=== PATIENT | male | born 1945 | race Hispanic/Latino ===

== ENCOUNTER 2019-09-30 23:20 | Inpatient (IN) | payer MEDICARE ==
[~2019-09-30] VITALS: Ht 157.5 cm; Wt 56.4 kg
[2019-09-30 23:53] LABS: BASOPHILS % (AUTO) 0.3 % (0.0-5.0); EOSINOPHILS % (AUTO) 0.2 % (0.0-8.0); HEMATOCRIT 34.5 % (42-54); LYMPHOCYTES % (AUTO) 12.9 % (21.0-51.0); MEAN CORPUSCULAR HEMOGLOBIN 29.8 pg (27.0-33.0); MEAN CORPUSCULAR HGB CONC 32.5 g/dL (32.0-36.0); MEAN CORPUSCULAR VOLUME 91.8 fL (79-99); MONOCYTES % (AUTO) 6.5 % (3.0-13.0); NEUTROPHILS % (AUTO) 79.9 % (40.0-77.0); PLATELET COUNT (AUTO) 144 K/uL (130-400); RED BLOOD CELL COUNT(AUTO) 3.76 MIL/uL (4.50-6.20); RED CELL DISTRIBUTION WIDTH 13.9 % (11.0-15.5)
[2019-10-01 00:13] LABS: CREATININE 1.2 mg/dL (0.5-1.5); POTASSIUM 3.4 mmol/L (3.5-5.1)
[2019-10-01] MEDS ORDERED: FUROSEMIDE 10 MG/ML 2ML VIAL ONE (00:14)
[2019-10-01] MEDS ORDERED: FUROSEMIDE 10 MG/ML 4ML VIAL ONE ×2 (00:14→14:50)
[2019-10-01] MEDS ORDERED: NITROGLYCERIN 1GM/1 INCH PACKET TD ONE ×3 (00:14→18:39)
[2019-10-01] MEDS ORDERED: MORPHINE SULFATE 2 MG/ML 1ML SYG ONE ×3 (00:15→00:49)
[2019-10-01 00:16] LABS: INR 0.91 (0.85-1.15); PARTIAL THROMBOPLASTIN TIME 20.8 SEC (26.3-35.5); PROTHROMBIN TIME 9.9 SEC (9.6-11.6)
[2019-10-01 00:20] LABS: ALBUMIN 3.6 g/dL (3.5-5.0); BILIRUBIN,TOTAL 0.3 mg/dL (0.2-1.0); TOTAL PROTEIN, SERUM 6.9 g/dL (6.0-8.3)
[2019-10-01] MEDS ORDERED: ONDANSETRON HCL 4 MG/2 ML VIAL ONE (00:28)
[2019-10-01 00:37] LABS: B-TYPE NATRIURETIC PEPTIDE 597 pg/mL (0-100)
[2019-10-01] MEDS ORDERED: ACETAMINOPHEN 325 MG TAB PO PRN ×2 (02:15)
[2019-10-01] MEDS ORDERED: ENOXAPARIN SODIUM 1 MG/KG SQ SCH (02:15)
[2019-10-01] MEDS ORDERED: MAG HYDROX/AL HYDROX/SIMETH ES 30 ML SUSP UDCUP PO PRN (02:15)
[2019-10-01] MEDS ORDERED: GUAIFENESIN-DM 200/20 MG 10 ML PO PRN (02:15)
[2019-10-01] MEDS ORDERED: LACTULOSE 20 GM/30 ML UDCUP PO PRN (02:15)
[2019-10-01] MEDS ORDERED: MORPHINE SULFATE 2 MG/ML 1ML SYG IV PRN (02:15)
[2019-10-01] MEDS ORDERED: HYDRALAZINE HCL 20 MG/ML VIAL IV PRN (02:15)
[2019-10-01] MEDS ORDERED: NITROGLYCERIN 0.4 MG SL TAB SL PRN (02:15)
[2019-10-01] MEDS ORDERED: MORPHINE SULFATE 4 MG/1ML SYG IV PRN (02:15)
[2019-10-01] MEDS ORDERED: ZOLPIDEM TARTRATE 5 MG TAB PO PRN (02:15)
[2019-10-01] MEDS ORDERED: MAG HYDROX/AL HYDROX/SIMETH 30 ML, LIDOCAINE HCL 2% VISCOUS 30 ML, DIPHENHYDRAMINE HCL ... PO PRN ×3 (02:15)
[2019-10-01] MEDS ORDERED: DiphenhydrAMINE HCL 50 MG/ML VIAL IV PRN (02:15)
[2019-10-01] MEDS ORDERED: NITROGLYCERIN 1GM/1 INCH PACKET TD SCH (02:15)
[2019-10-01] MEDS ORDERED: DIPHENHYDRAMINE HCL 25 MG CAPSULE PO PRN (02:15)
[2019-10-01] MEDS: TICAGRELOR 90 MG TABLET PO SCH (02:30)
[2019-10-01] MEDS ORDERED: ENOXAPARIN SODIUM 100 MG/1 ML SQ ONE (02:35)
[2019-10-01] MEDS ORDERED: TICAGRELOR 90 MG TABLET ONE (02:36)
[2019-10-01] MEDS ORDERED: ATORVASTATIN CALCIUM 40 MG TABLET ONE (02:36)
[2019-10-01 04:10] LABS: TROPONIN I 10.93 ng/mL (0.00-0.06)
[2019-10-01] MEDS ORDERED: POTASSIUM CHLORIDE 10MEQ/100ML 100 ML IV PRN (05:15)
[2019-10-01] MEDS ORDERED: LIDOCAINE HCL-MPF 1% 2ML VIAL IV PRN (05:15)
[2019-10-01] MEDS ORDERED: FUROSEMIDE 10 MG/ML 4ML VIAL IVP SCH (06:00)
[2019-10-01] MEDS: ASPIRIN 325 MG TABLET PO SCH (09:00)
[2019-10-01] MEDS ORDERED: FAMOTIDINE/PF 20 MG/2 ML VIAL IV SCH (09:00)
[2019-10-01] MEDS: FAMOTIDINE/PF 20 MG/2 ML VIAL IV SCH (09:00)
[2019-10-01] MEDS ORDERED: ASPIRIN 325 MG TABLET ONE (09:33)
[2019-10-01] MEDS ORDERED: METOPROLOL TARTRATE 1 MG/ML 5ML VIAL IV SCH (10:00)
[2019-10-01 10:30] LABS: TROPONIN I 28.85 ng/mL (0.00-0.06)
[2019-10-01] MEDS ORDERED: CLOPIDOGREL BISULFATE 75 MG TAB ONE (11:37)
[2019-10-01] MEDS ORDERED: METOPROLOL TARTRATE 1 MG/ML 5ML VIAL IV ONE (11:37)
[2019-10-01] MEDS: METOPROLOL TARTRATE 25 MG TAB PO SCH ×2 (11:55→21:00)
[2019-10-01] MEDS ORDERED: ENOXAPARIN SODIUM 60 MG/0.6 ML SQ ONE (14:49)
[2019-10-01] MEDS ORDERED: DOBUTAMINE 250MG/D5 250ML 250 ML IV ONE (14:53)
[2019-10-01] MEDS ORDERED: BUMETANIDE 0.25 MG/ML IV SCH (15:30)
[2019-10-01] MEDS ORDERED: DOBUTAMINE 250MG/D5 250ML 250 ML IV SCH (15:30)
[2019-10-01] MEDS ORDERED: FUROSEMIDE 10 MG/ML 4ML VIAL IV SCH (16:00)
[2019-10-01 19:33] LABS: TROPONIN I 17.78 ng/mL (0.00-0.06)
[2019-10-01] MEDS: ATORVASTATIN CALCIUM 40 MG TABLET PO SCH (21:00)
--- NOTE | 2019-10-02 01:44 | NUR ---
PATIENT ARRIVED TO THE UNIT TACHYCARDIC AND TACHYPNEA. NO COMPLAINT OF CHEST PAIN AT THE MOMENT. WILL CONTINUE TO MONITOR Addendum: 10/02/19 at 0147 by IJEOMA CRAVEN RN RN Amended: Links added.
[2019-10-02] MEDS ORDERED: MILRINONE-D5W 20 MG/100 ML 100 ML IV ONE (02:11)
[2019-10-02] MEDS ORDERED: DIGOXIN 250 MCG/ML 2ML AMP ONE (02:12)
[2019-10-02] MEDS ORDERED: DIGOXIN 250 MCG/ML 2ML AMP IV SCH (02:30)
[2019-10-02] MEDS ORDERED: MORPHINE SULFATE 2 MG/ML 1ML SYG IVP ONE (02:30)
[2019-10-02] MEDS: TICAGRELOR 90 MG TABLET PO SCH (02:30)
[2019-10-02 04:05] LABS: BASOPHILS % (AUTO) 0.2 % (0.0-5.0); HEMATOCRIT 36.9 % (42-54); LYMPHOCYTES % (AUTO) 4.6 % (21.0-51.0); MEAN CORPUSCULAR HGB CONC 33.1 g/dL (32.0-36.0); MEAN CORPUSCULAR VOLUME 90.9 fL (79-99); MONOCYTES % (AUTO) 11.1 % (3.0-13.0); NEUTROPHILS % (AUTO) 83.5 % (40.0-77.0); PLATELET COUNT (AUTO) 138 K/uL (130-400); RED BLOOD CELL COUNT(AUTO) 4.06 MIL/uL (4.50-6.20); RED CELL DISTRIBUTION WIDTH 13.7 % (11.0-15.5); WHITE BLOOD COUNT (AUTO) 8.9 K/uL (4.8-10.8)
[2019-10-02 04:09] VITALS: BP 93/59
[2019-10-02 04:29] LABS: B-TYPE NATRIURETIC PEPTIDE 1110 pg/mL (0-100)
[2019-10-02 04:44] LABS: % IRON SATURATION 6.1 % (30-44)
[2019-10-02 04:56] LABS: CARBON DIOXIDE 29 mmol/L (21-32); CHLORIDE 103 mmol/L (101-111); CHOLESTEROL 112 mg/dL (<200); CREATININE 1.3 mg/dL (0.5-1.5); GLOMERULAR FILTR. RATE CALC 58 mL/min (>60); GLUCOSE,RANDOM 158 mg/dL (70-105); HDL CHOLESTEROL 55 mg/dL (29-71); LDL DIRECT 46 mg/dL (0-99); POTASSIUM 3.5 mmol/L (3.5-5.1); SODIUM SERUM 142 mmol/L (136-145); TRIGLYCERIDES 88 mg/dL (30-200); UREA NITROGEN, BLOOD 41 mg/dL (7-18)
[2019-10-02 05:30] LABS: THYROID STIMULATING HORMONE < 0.01 uIU/mL (0.36-3.74)
[2019-10-02] MEDS: DIGOXIN 250 MCG/ML 2ML AMP IV SCH (06:48)
[2019-10-02] MEDS ORDERED: ADENOSINE 3 MG/ML 2ML VIAL IV ONE (08:36)
[2019-10-02] MEDS ORDERED: VANCOMYCIN PROTOCOL PER PHARMACY IV PRN ×2 (09:00→09:15)
[2019-10-02] MEDS ORDERED: VANCOMYCIN 1GM+NS 250ML 250 ML IV SCH (09:00)
[2019-10-02] MEDS ORDERED: RENAL DOSE IV SCH (09:15)
[2019-10-02] MEDS ORDERED: AZITHROMYCIN 500MG+NS 250ML 250 ML IV SCH (09:30)
[2019-10-02] MEDS ORDERED: CEFTRIAXONE SODIUM 1 GM IVP SCH (09:30)
[2019-10-02] MEDS: ASPIRIN 325 MG TABLET PO SCH (10:21)
[2019-10-02] MEDS: FAMOTIDINE/PF 20 MG/2 ML VIAL IV SCH (10:21)
[2019-10-02] MEDS: CLOPIDOGREL BISULFATE 75 MG TAB PO SCH (10:22)
[2019-10-02] MEDS ORDERED: COMPOUND IV MISC 1 EACH IVSOLN MISC PRN (10:30)
[2019-10-02] MEDS: IRON SUCROSE COMPLEX 300 MG in SODIUM CHLORIDE 0.9% 250 ML IV SCH (12:35)
--- NOTE | 2019-10-02 14:48 | NUR ---
RECEIVED TRANSFER FROM ICU REPORT RECEIVED FROM ICU STRMYRON NURSE, RN. AOX3, SPEAKS PASHTO AND QUESTIONS ASKED BY ZEINA MILTON, HELPING WITH ADMISSION/TRANSFER. VSS, ST 109, MILNINORE 0.25 MCG/KG/MIN AND BUMEX AT 2ML/HR FIXED RATES= 0.5MG/HR. SKIN INTACT. IV PATIENT 18G LT HAND AND 18G LT FA. [place] DRAINING YELLOW URINE.CONNECTED TO TELEMETRY AND MONITOR IN ROOM. 2LNC. 90s SATS.
[2019-10-02 16:05] VITALS: BP 99/70
[2019-10-02] MEDS ORDERED: ENOXAPARIN SODIUM 60 MG/0.6 ML SQ SCH ×2 (16:15→19:00)
--- NOTE | 2019-10-02 17:31 | NUR ---
REPORT CALLED TO 4TH FLOOR MIRA PATIENT TRANSFERRED WITH BED AND O2 2LNC.
[2019-10-02] MEDS: DOXYCYCLINE HYCLATE 100 MG TABLET PO SCH (21:12)
[2019-10-02] MEDS: ATORVASTATIN CALCIUM 40 MG TABLET PO SCH (21:12)
[2019-10-02] MEDS: ENOXAPARIN SODIUM 60 MG/0.6 ML SQ SCH (21:13)
[2019-10-02 21:26] VITALS: BP 126/64
[2019-10-02] MEDS: ONDANSETRON HCL 4 MG/2 ML VIAL IV PRN (23:24)
[2019-10-03 00:03] VITALS: BP 124/77
[2019-10-03] MEDS: POTASSIUM CHLORIDE 20 MEQ ERTAB PO PRN ×2 (00:29→00:32)
[2019-10-03] MEDS: DIGOXIN 250 MCG/ML 2ML AMP IV SCH (00:30)
--- NOTE | 2019-10-03 00:30 | NUR ---
PATIENT RESTING HAD STATED ZOFRAN WORKED FOR HIS NAUSEA. HEART RATE CONTINUES TO SUSTAIN AROUND 134. CALLED SAKINA PAINTER FOREMAN. VERBAL ORDERS GIVEN FOE 20MEQ OF POTASSIUM PO POTASSIUM IS 3.5 AND 250MCG OF DIGOXIN.
--- NOTE | 2019-10-03 00:34 | NUR ---
PATIENT STATED HE WAS THROWING UP. NOTHING WAS COMING UP. THIS NURSE DID GIVE ZOFRAN ORDER VIA IV. TELE MONITOR CALLED AND STATED HEART RATE INCREASED TO THE 130'S STATED PATIENT WAS THROWING UP AT THE TIME WILL CONTINUE TO MONITOR.
[2019-10-03 04:20] VITALS: BP 105/70
[2019-10-03 06:00] LABS: BASOPHILS % (AUTO) 0.3 % (0.0-5.0); HEMATOCRIT 37.1 % (42-54); LYMPHOCYTES % (AUTO) 9.1 % (21.0-51.0); MEAN CORPUSCULAR HGB CONC 32.1 g/dL (32.0-36.0); MEAN CORPUSCULAR VOLUME 90.5 fL (79-99); NEUTROPHILS % (AUTO) 78.3 % (40.0-77.0); PLATELET COUNT (AUTO) 144 K/uL (130-400); RED CELL DISTRIBUTION WIDTH 13.3 % (11.0-15.5); WHITE BLOOD COUNT (AUTO) 6.9 K/uL (4.8-10.8)
[2019-10-03 06:41] LABS: CARBON DIOXIDE 31 mmol/L (21-32); CHLORIDE 98 mmol/L (101-111); CREATININE 1.5 mg/dL (0.5-1.5); GLOMERULAR FILTR. RATE CALC 49 mL/min (>60); GLUCOSE,RANDOM 128 mg/dL (70-105); PHOSPHORUS 4.2 mg/dL (2.5-4.9); POTASSIUM 3.3 mmol/L (3.5-5.1); SODIUM SERUM 140 mmol/L (136-145); UREA NITROGEN, BLOOD 60 mg/dL (7-18)
[2019-10-03 06:52] LABS: THYROID STIMULATING HORMONE < 0.01 uIU/mL (0.36-3.74)
[2019-10-03] MEDS: CLOPIDOGREL BISULFATE 75 MG TAB PO SCH (07:43)
[2019-10-03] MEDS: FAMOTIDINE/PF 20 MG/2 ML VIAL IV SCH (07:44)
[2019-10-03] MEDS: CEFTRIAXONE SODIUM 1 GM IV SCH (07:44)
[2019-10-03] MEDS: ASCORBIC ACID 500 MG TAB PO SCH (07:45)
[2019-10-03] MEDS: ASPIRIN 325 MG TABLET PO SCH (07:45)
[2019-10-03] MEDS: ENOXAPARIN SODIUM 60 MG/0.6 ML SQ SCH (07:45)
[2019-10-03] MEDS: DOXYCYCLINE HYCLATE 100 MG TABLET PO SCH ×2 (07:45→20:59)
[2019-10-03 08:00] VITALS: BP 96/60
--- NOTE | 2019-10-03 08:00 | NUR ---
ASSESSMENT PT IS AAOX3 DENIES CP DENIES SOB DENIES NV. AM MEDS GIVEN. SITTING UPRIGHT IN BED, CALL LIGHT WITHIN REACH. CONTINUES ON MILRINONE AND BUMEX ORDERED.
[2019-10-03] MEDS ORDERED: TICAGRELOR 90 MG TABLET PO SCH (09:00)
[2019-10-03] MEDS: IRON SUCROSE COMPLEX 300 MG in SODIUM CHLORIDE 0.9% 250 ML IV SCH (09:33)
[2019-10-03] MEDS ORDERED: DIGOXIN 250 MCG/ML 2ML AMP IV SCH (11:00)
[2019-10-03 12:00] VITALS: BP 108/60
--- NOTE | 2019-10-03 12:00 | NUR ---
DR Weston TOSCANO SAW PATIENT ORDERS RECEIVED AND CARRIED OUT
--- NOTE | 2019-10-03 13:02 | NUR ---
UNABLE TO REACH FAMILY SW has attempted multiple times to reach family but has been unsuccessful. SW will continue to reach out to family.
[2019-10-03 15:55] VITALS: BP 114/64
[2019-10-03] MEDS: ONDANSETRON HCL 4 MG/2 ML VIAL IV PRN (16:18)
[2019-10-03 20:54] VITALS: BP 114/69
[2019-10-03] MEDS: ATORVASTATIN CALCIUM 40 MG TABLET PO SCH (20:59)
[2019-10-03] MEDS ORDERED: ENOXAPARIN SODIUM 40 MG/0.4 ML SYRINGE SQ SCH (21:00)
--- NOTE | 2019-10-03 23:00 | NUR ---
UA AND SPUTUM COLLECTED. PT IS ST 100S. NO SOB OR DISTRESS NOTED.
[2019-10-03 23:59] LABS: APPEARANCE,URINE Cloudy (CLEAR); BILIRUBIN,URINE Negative (NEGATIVE); COLOR,URINE Yellow (YELLOW); GLUCOSE, URINE (UA) Negative (NEGATIVE); KETONES,URINE Negative (NEGATIVE); LEUKOCYTE ESTERASE ,URINE Negative (NEGATIVE); NITRATE,URINE Negative (NEGATIVE); OCCULT BLOOD,URINE Large (NEGATIVE); PROTEIN,URINE Negative (NEGATIVE); UROBILINOGEN,URINE 0.2 mg/dL (0.2-1.0)
[2019-10-04] VITALS (7 sets, daily range): BP systolic 101–127; BP diastolic 51–88
[2019-10-04 00:02] LABS: CREATININE,URINE RANDOM 75 mg/dL (30-135); SODIUM,URINE RANDOM < 15 mmol/l (40-220)
[2019-10-04 00:17] LABS: BACTERIA,URINE None Seen /HPF (None Seen); MUCUS,URINE Few LPF (None Seen); SQUAMOUS EPITHELIAL CELL,UR Rare /HPF (0-2); WBC,URINE None Seen /HPF (0-1)
--- NOTE | 2019-10-04 03:48 | NUR ---
POTASSIUM STARTED AT THIS TIME. LEVEL 3.3 IV PROTOCOL.
[2019-10-04 06:36] LABS: BASOPHILS % (AUTO) 0.3 % (0.0-5.0); HEMATOCRIT 35.5 % (42-54); LYMPHOCYTES % (AUTO) 15.1 % (21.0-51.0); MEAN CORPUSCULAR HEMOGLOBIN 29.7 pg (27.0-33.0); MEAN CORPUSCULAR HGB CONC 32.7 g/dL (32.0-36.0); MONOCYTES % (AUTO) 12.3 % (3.0-13.0); PLATELET COUNT (AUTO) 157 K/uL (130-400); RED CELL DISTRIBUTION WIDTH 13.2 % (11.0-15.5)
[2019-10-04 06:46] LABS: CREATININE 1.3 mg/dL (0.5-1.5); POTASSIUM 3.4 mmol/L (3.5-5.1)
--- NOTE | 2019-10-04 08:02 | NUR ---
DR. Ashley FRAZIER IN ROOM SPEAKING WITH PT.
[2019-10-04] MEDS: ASCORBIC ACID 500 MG TAB PO SCH (08:24)
[2019-10-04] MEDS: ASPIRIN 81MG TAB.CHEW PO SCH (08:24)
[2019-10-04] MEDS: IRON SUCROSE COMPLEX 300 MG in SODIUM CHLORIDE 0.9% 250 ML IV SCH (08:24)
[2019-10-04] MEDS: DIGOXIN 125 MCG TABLET PO SCH (08:24)
[2019-10-04] MEDS: CLOPIDOGREL BISULFATE 75 MG TAB PO SCH (08:25)
[2019-10-04] MEDS: CEFTRIAXONE SODIUM 1 GM IV SCH (08:25)
[2019-10-04] MEDS: DOXYCYCLINE HYCLATE 100 MG TABLET PO SCH ×2 (08:25→21:01)
[2019-10-04] MEDS: FAMOTIDINE/PF 20 MG/2 ML VIAL IV SCH (08:25)
[2019-10-04] MEDS: MILRINONE-D5W 20 MG/100 ML 100 ML IV SCH (08:27)
[2019-10-04] MEDS: ENOXAPARIN SODIUM 40 MG/0.4 ML SYRINGE SQ SCH (08:27)
--- NOTE | 2019-10-04 10:41 | NUR ---
RECEIVED CALL FROM PT.'S DAUGHTER, PAGE HARRISON. DAUGHTER'S QUESTIONS ANSWERED, WITH PT.'S CONSENT, REGARDING PT.'S STATUS; VERBALIZED UNDERSTANDING.
[2019-10-04] MEDS: POTASSIUM CHLORIDE 10% ELIXIR 20 MEQ/15 ML UDCUP PO PRN ×2 (12:12→18:31)
--- NOTE | 2019-10-04 14:00 | NUR ---
F/C REMOVED. DTV. CALL LIGHT WITHIN REACH.
--- NOTE | 2019-10-04 14:24 | NUR ---
MILRINONE INFUSION ADJUSTED TO WEIGHT OF 56.9KG; 4.26ML/HR VIA IV PUMP.
[2019-10-04] MEDS ORDERED: DIGOXIN 125 MCG TABLET PO SCH (16:00)
--- NOTE | 2019-10-04 17:42 | NUR ---
ASSISTED TO BSC AND BACK TO BED. NO BM NOTED. VOIDED APPROX. 175ML DARK YELLOW URINE. CALL LIGHT WITHIN REACH, VERBALIZED ABILITY TO USE. ROOM DOOR OPEN, VISIBLE FROM NURSE'S STATION.
--- NOTE | 2019-10-04 19:47 | NUR ---
cm note met with patient and states resides athome with spouse, shmuel, pt ambulates per self, does own adls, and has no dme. states dc plan is back to home at time of dc. contacts provided daughter Carin sparrow [phone] and son helio Nava [phone]. state adult children will assist at home if any dc needs. Addendum: 10/04/19 at 1949 by NADEEN VITALE CM Amended: Links added.
[2019-10-04] MEDS: ATORVASTATIN CALCIUM 40 MG TABLET PO SCH (21:01)
[2019-10-05 03:27] VITALS: BP 104/59
[2019-10-05 03:55] LABS: BASOPHILS % (AUTO) 0.6 % (0.0-5.0); EOSINOPHILS % (AUTO) 4.5 % (0.0-8.0); HEMATOCRIT 34.7 % (42-54); MEAN CORPUSCULAR HEMOGLOBIN 29.6 pg (27.0-33.0); MEAN CORPUSCULAR HGB CONC 32.6 g/dL (32.0-36.0); MEAN CORPUSCULAR VOLUME 90.8 fL (79-99); MONOCYTES % (AUTO) 12.9 % (3.0-13.0); NEUTROPHILS % (AUTO) 60.8 % (40.0-77.0); PLATELET COUNT (AUTO) 148 K/uL (130-400); RED BLOOD CELL COUNT(AUTO) 3.82 MIL/uL (4.50-6.20); RED CELL DISTRIBUTION WIDTH 12.9 % (11.0-15.5); WHITE BLOOD COUNT (AUTO) 4.9 K/uL (4.8-10.8)
[2019-10-05 04:34] LABS: ALANINE AMINOTRANSFERASE 19 U/L (12-78); ALBUMIN 2.7 g/dL (3.5-5.0); ASPARTATE AMINOTRANSFERASE 37 U/L (10-37); BILIRUBIN,TOTAL 0.7 mg/dL (0.2-1.0); CARBON DIOXIDE 33 mmol/L (21-32); CHLORIDE 101 mmol/L (101-111); CREATININE 1.1 mg/dL (0.5-1.5); GLOMERULAR FILTR. RATE CALC 70 mL/min (>60); GLUCOSE,RANDOM 106 mg/dL (70-105); POTASSIUM 3.6 mmol/L (3.5-5.1); SODIUM SERUM 138 mmol/L (136-145); TOTAL PROTEIN, SERUM 6.8 g/dL (6.0-8.3); UREA NITROGEN, BLOOD 56 mg/dL (7-18)
[2019-10-05 05:01] LABS: THYROID STIMULATING HORMONE < 0.01 uIU/mL (0.36-3.74)
[2019-10-05] MEDS: MILRINONE-D5W 20 MG/100 ML 100 ML IV SCH (07:20)
[2019-10-05 08:00] VITALS: BP 116/64
--- NOTE | 2019-10-05 08:22 | NUR ---
Tawny SANCHEZ PA-C, IN ROOM ASSESSING/SPEAKING WITH PT. RE:PLAN OF CARE. QUESTIONS ANSWERED BY Tawny SANCHEZ.
[2019-10-05] MEDS: FUROSEMIDE 20 MG TABLET PO SCH ×2 (08:46→16:44)
[2019-10-05] MEDS: ASPIRIN 81MG TAB.CHEW PO SCH (08:46)
[2019-10-05] MEDS: ASCORBIC ACID 500 MG TAB PO SCH (08:46)
[2019-10-05] MEDS: DOXYCYCLINE HYCLATE 100 MG TABLET PO SCH ×2 (08:46→20:39)
[2019-10-05] MEDS: CLOPIDOGREL BISULFATE 75 MG TAB PO SCH (08:46)
[2019-10-05] MEDS: POTASSIUM CHLORIDE 10% ELIXIR 20 MEQ/15 ML UDCUP PO PRN (08:47)
[2019-10-05] MEDS: ENOXAPARIN SODIUM 40 MG/0.4 ML SYRINGE SQ SCH (08:47)
[2019-10-05] MEDS: CEFTRIAXONE SODIUM 1 GM IV SCH (08:48)
[2019-10-05] MEDS: FAMOTIDINE/PF 20 MG/2 ML VIAL IV SCH (08:48)
[2019-10-05] MEDS ORDERED: METOPROLOL TARTRATE 25 MG TAB PO SCH (09:00)
--- NOTE | 2019-10-05 09:43 | NUR ---
RECEIVED CALL FROM PT.'S SON-IN-LAW, Elieser EDWARDS, UPDATED ON PT.'S STATUS AND QUESTIONS ANSWERED; VERBALIZED UNDERSTANDING.
[2019-10-05 11:00] VITALS: BP 107/63
--- NOTE | 2019-10-05 11:54 | NUR ---
BPCI Letter given to patient
[2019-10-05 16:00] VITALS: BP 110/65
[2019-10-05 20:00] VITALS: BP 118/64
[2019-10-05] MEDS: METOPROLOL TARTRATE 25 MG TAB PO SCH (20:39)
[2019-10-05] MEDS: ATORVASTATIN CALCIUM 40 MG TABLET PO SCH (20:39)
[2019-10-06] VITALS (7 sets, daily range): BP systolic 97–109; BP diastolic 60–62
[2019-10-06 06:26] LABS: CREATININE 0.9 mg/dL (0.5-1.5); POTASSIUM 3.6 mmol/L (3.5-5.1)
[2019-10-06] MEDS: ASPIRIN 81MG TAB.CHEW PO SCH (09:49)
[2019-10-06] MEDS: CEFTRIAXONE SODIUM 1 GM IV SCH (09:50)
[2019-10-06] MEDS: ASCORBIC ACID 500 MG TAB PO SCH (09:50)
[2019-10-06] MEDS: DOXYCYCLINE HYCLATE 100 MG TABLET PO SCH ×2 (09:50→21:02)
[2019-10-06] MEDS: FUROSEMIDE 20 MG TABLET PO SCH ×2 (09:50→16:39)
[2019-10-06] MEDS: METOPROLOL TARTRATE 25 MG TAB PO SCH ×2 (09:51→21:03)
[2019-10-06] MEDS: DIGOXIN 125 MCG TABLET PO SCH (09:51)
[2019-10-06] MEDS: CLOPIDOGREL BISULFATE 75 MG TAB PO SCH (09:51)
[2019-10-06] MEDS: ENOXAPARIN SODIUM 40 MG/0.4 ML SYRINGE SQ SCH (09:52)
[2019-10-06] MEDS: FAMOTIDINE/PF 20 MG/2 ML VIAL IV SCH (09:53)
[2019-10-06] MEDS: POTASSIUM CHLORIDE 20 MEQ ERTAB PO PRN ×2 (10:15→16:40)
--- NOTE | 2019-10-06 20:00 | NUR ---
Received the patient Received the patient A/o x4 lying awake in bed. Patient's VSS in no acute distress at this time and no complaints of pain or discomfort. Plan of care and fall precautions reviewed with patient. Patient verbalized understanding. Bed in lowest position, wheels locked, bed alarm activated. personal items and call light within reach. Will continue with plan of care.
[2019-10-06] MEDS: ATORVASTATIN CALCIUM 40 MG TABLET PO SCH (21:02)
[2019-10-07] VITALS (14 sets, daily range): BP systolic 97–113; BP diastolic 54–67
[2019-10-07 04:00] LABS: CREATININE 1.1 mg/dL (0.5-1.5)
[2019-10-07 04:14] LABS: INR 0.97 (0.85-1.15); PROTHROMBIN TIME 10.5 SEC (9.6-11.6)
[2019-10-07] MEDS ORDERED: IOHEXOL-350 50ML VIAL IV ONE (07:21)
[2019-10-07] MEDS ORDERED: HEPARIN SODIUM 1000UNIT/ML 10ML VIAL ONE (07:21)
[2019-10-07] MEDS ORDERED: NITROGLYCERIN 2 MG/VIAL VIAL IV ONE (07:21)
[2019-10-07] MEDS ORDERED: IOHEXOL 350 MG/ML 100ML INFUS..BTL IV ONE (07:21)
[2019-10-07] MEDS ORDERED: LIDOCAINE HCL 2% 20ML ONE (07:22)
[2019-10-07] MEDS ORDERED: ADENOSINE 90MG/30ML VIAL IV ONE (08:00)
[2019-10-07] MEDS: SODIUM CHLORIDE 0.9% 10 ML VIAL IVP SCH ×2 (09:00→16:52)
[2019-10-07] MEDS: CLOPIDOGREL BISULFATE 75 MG TAB PO SCH (09:00)
[2019-10-07] MEDS: ASPIRIN 81MG TAB.CHEW PO SCH (10:32)
[2019-10-07] MEDS: ASCORBIC ACID 500 MG TAB PO SCH (10:32)
[2019-10-07] MEDS: FAMOTIDINE/PF 20 MG/2 ML VIAL IV SCH (10:32)
[2019-10-07] MEDS: DOXYCYCLINE HYCLATE 100 MG TABLET PO SCH (10:32)
[2019-10-07] MEDS: CEFTRIAXONE SODIUM 1 GM IV SCH (10:33)
[2019-10-07] MEDS: METOPROLOL TARTRATE 25 MG TAB PO SCH ×2 (10:33→21:23)
[2019-10-07] MEDS: FUROSEMIDE 20 MG TABLET PO SCH ×2 (10:33→16:52)
[2019-10-07] MEDS ORDERED: METHIMAZOLE 10 MG TAB PO SCH (12:15)
--- NOTE | 2019-10-07 16:30 | NUR ---
CM NOTE/[facility] CALL MADE BY KACIE FROM [facility]. PER KACIE, PROGRESS NOTED INCLUDED FOR REFERRAL BY DR. GARZON HAS NOT BEEN SIGNED AND PER MEDICARE PART A/B, SIGNATURE IS REQUIRED TO [facility]ESS [facility] REQUEST. THIS CM WENT TO REVIEW CHART TO SEE IF SIGNED PROGRESS NOTE WAS FILED, NONE NOTED. CALL MADE TO PRIMARY NURSE, ALLY RN, NO ANSWER. CALL MADE TO MIRA MILTON, CHARGE NURSE. PER CHARGE NURSE, WILL PAGE KARL SON FOR DR. GARZON, FOR SIGNATURE AND FOLLOW UP OF PROGRESS NOTE. KACIE CALLED TO INFORM HER OF PENDING SIGNATURE, NO ANSWER, WILL FOLLOW UP IN AM.
[2019-10-07] MEDS: ATORVASTATIN CALCIUM 40 MG TABLET PO SCH (21:23)
[2019-10-07] MEDS: METHIMAZOLE 10 MG TAB PO SCH (21:23)
[2019-10-08] MEDS: SODIUM CHLORIDE 0.9% 10 ML VIAL IVP SCH ×3 (00:37→17:09)
--- NOTE | 2019-10-08 02:27 | NUR ---
RECEIVED REPORT FROM BORA DOMÍNGUEZ NURSE, RESUMED CARE, INTRODUCED SELF, PT IS AOX3 , SHIFT ASSESSMENT DONE, LUNG HAGAN CLEAR, ABDOMEN SOFT, PRESSURE DRESSING IN RIGHT GROIN NO BLEEDING NOTED, TIMED MEDICATION GIVEN, SEE EMAR, SAFETY MAINTAINED, BED IN LOWEST POSITION, CALL POLK IN REACHED, WILL CONTINUE TO MONITOR. 24 CC DONE.
[2019-10-08 04:22] VITALS: BP 114/60
--- NOTE | 2019-10-08 07:30 | NUR ---
ASSESSMENT ENCOUNTERED PT A&OX3, CALM COOPERATIVE AND DOES NOT APPEAR TO BE IN ANY DISTRESS NOR ANY NEURO DEFICITS PRESENT. RT GROIN SOFT WITH NO EDEMA OR HEMATOMA PRESENT. DP/PT PULSES PALPABLE. PT IS AMBULATORY, GAIT SLOW BUT STEADY WITH WALKER AND 1-2 PERSON ASSIST. PT IS ABLE TO TOLERATE FOODS, FLUIDS AND MEDICATION WITH NO THROAT CLEARING OR COUGH. CALL LIGHT WITHIN REACH.
[2019-10-08 08:24] LABS: BASOPHILS % (AUTO) 0.5 % (0.0-5.0); EOSINOPHILS % (AUTO) 2.9 % (0.0-8.0); HEMATOCRIT 39.4 % (42-54); LYMPHOCYTES % (AUTO) 17.5 % (21.0-51.0); MEAN CORPUSCULAR HEMOGLOBIN 29.7 pg (27.0-33.0); MEAN CORPUSCULAR HGB CONC 32.7 g/dL (32.0-36.0); MEAN CORPUSCULAR VOLUME 90.8 fL (79-99); NEUTROPHILS % (AUTO) 70.6 % (40.0-77.0); PLATELET COUNT (AUTO) 171 K/uL (130-400); RED BLOOD CELL COUNT(AUTO) 4.34 MIL/uL (4.50-6.20); WHITE BLOOD COUNT (AUTO) 7.7 K/uL (4.8-10.8)
[2019-10-08 08:41] LABS: POTASSIUM 4.1 mmol/L (3.5-5.1)
[2019-10-08 09:32] VITALS: BP 95/52
[2019-10-08 09:55] VITALS: BP 104/61
[2019-10-08] MEDS: METHIMAZOLE 10 MG TAB PO SCH (09:56)
[2019-10-08] MEDS: DIGOXIN 125 MCG TABLET PO SCH (09:57)
[2019-10-08] MEDS: METOPROLOL TARTRATE 25 MG TAB PO SCH (09:57)
[2019-10-08] MEDS: FUROSEMIDE 20 MG TABLET PO SCH ×2 (09:57→17:05)
[2019-10-08] MEDS: CLOPIDOGREL BISULFATE 75 MG TAB PO SCH (09:58)
[2019-10-08] MEDS: ASPIRIN 81MG TAB.CHEW PO SCH (09:58)
[2019-10-08] MEDS: CEFTRIAXONE SODIUM 1 GM IV SCH (09:58)
[2019-10-08] MEDS: FAMOTIDINE/PF 20 MG/2 ML VIAL IV SCH (09:58)
[2019-10-08] MEDS: ASCORBIC ACID 500 MG TAB PO SCH (09:59)
[2019-10-08 11:58] VITALS: BP 114/68
--- NOTE | 2019-10-08 12:21 | NUR ---
RDSCREEN - LOS X 7 Pt admitted with CHF Exacerbation, Nstemi. Pt with Heart Healthy diet order in place. Poor PO intake. No complaint of GI distress. Monitored labs: Alb 2.7, BNP 737. Recommend continue diet order Recommend 60mL ProMod QD Recommend Ensure BID RD to continue to monitor. Please notify as additional nutrition concerns arise. Thank you.
[2019-10-08 17:04] VITALS: BP 100/54
--- NOTE | 2019-10-08 17:15 | NUR ---
CM NOTE/[facility] CALL RECEIVED FROM KACIE AT [facility]. PER KACIE, ORDER STILL UNDER PROCESS BUT ANTICIPATING THAT IT WILL BE APPROVED AND DELIVERED THIS EVENING. PHONE NUMBER FOR NURSES STATION GIVEN TO KACIE, [phone]., SHE WILL CALL PRIMARY NURSE, GIOVANNY MILTON, FOR UPDATES. GIOVANNY MILTON MADE AWARE OF STATUS OF [facility].
[2019-10-08] MEDS ORDERED: METO25 PO (18:39)
[2019-10-08] MEDS ORDERED: CLOP75TA14 PO (18:39)
[2019-10-08] MEDS ORDERED: METHI10 PO (18:39)
[2019-10-08] MEDS ORDERED: DIGO125T71 PO (18:39)
[2019-10-08] MEDS ORDERED: ASPI-1005 PO (18:39)
[2019-10-08] MEDS ORDERED: ATOR40TA69 PO (18:39)
[2019-10-08] MEDS ORDERED: FURO20TA6 PO (18:39)
--- NOTE | 2019-10-08 19:00 | NUR ---
DISCHARGE INSTRUCTIONS GIVEN, PIV REMOVED AND INTACT, LIFEVEST ON, DISCHARGED HOME TO FAMILY VEHICLE VIA WHEELCHAIR.
== END 2019-10-08 20:00 | disposition home or self-care (01) | DRG 280 ==
LOC: EDH 23:20 → EDHIP 10-01 02:12 → 2BH 10-02 00:58 → 2AH 10-02 14:58 → 4DH 10-02 18:05
PROVIDERS: ADMIT Internal Medicine; ATTEND Internal Medicine
PROC: 5A09357 Assistance with Respiratory Ventilation, Less than 24 Consecutive Hours, Continuous Positive Airway Pressure (ICD-10-PCS; principal; 2019-10-01)
PROC: 4A023N7 Measurement of Cardiac Sampling and Pressure, Left Heart, Percutaneous Approach (ICD-10-PCS; 2019-10-07)
PROC: B2111ZZ Fluoroscopy of Multiple Coronary Arteries using Low Osmolar Contrast (ICD-10-PCS; 2019-10-07)
PROC: B2151ZZ Fluoroscopy of Left Heart using Low Osmolar Contrast (ICD-10-PCS; 2019-10-07)
PROC: 4A033BC Measurement of Arterial Pressure, Coronary, Percutaneous Approach (ICD-10-PCS; 2019-10-07)
DX: I21.4 Non-ST elevation (NSTEMI) myocardial infarction (principal); J96.01 Acute respiratory failure with hypoxia; J81.0 Acute pulmonary edema; R57.0 Cardiogenic shock; I50.41 Acute combined systolic (congestive) and diastolic (congestive) heart failure; I13.0 Hypertensive heart and chronic kidney disease with heart failure and stage 1 through stage 4 chronic kidney disease, or unspecified chronic kidney disease; N17.9 Acute kidney failure, unspecified; I24.9 Acute ischemic heart disease, unspecified; B96.89 Other specified bacterial agents as the cause of diseases classified elsewhere; E87.6 Hypokalemia; D50.9 Iron deficiency anemia, unspecified; I25.5 Ischemic cardiomyopathy; I44.7 Left bundle-branch block, unspecified; B95.61 Methicillin susceptible Staphylococcus aureus infection as the cause of diseases classified elsewhere; E04.2 Nontoxic multinodular goiter; E05.00 Thyrotoxicosis with diffuse goiter without thyrotoxic crisis or storm; E11.22 Type 2 diabetes mellitus with diabetic chronic kidney disease; E78.5 Hyperlipidemia, unspecified; I08.0 Rheumatic disorders of both mitral and aortic valves; I25.10 Atherosclerotic heart disease of native coronary artery without angina pectoris; N18.9 Chronic kidney disease, unspecified; R53.81 Other malaise; I25.2 Old myocardial infarction; Z74.01 Bed confinement status; Z79.02 Long term (current) use of antithrombotics/antiplatelets; Z79.82 Long term (current) use of aspirin; Z79.899 Other long term (current) drug therapy; Z87.891 Personal history of nicotine dependence; Z03.818 Encounter for observation for suspected exposure to other biological agents ruled out
CPT/HCPCS: 36415; 71045; 76536; 80048; 80053; 80061; 81001; 82533; 82550; 82570; 83540; 83550; 83605; 83735; 83874; 83880; 84100; 84145; 84146; 84300; 84439; 84443; 84481; 84484; 85025; 85045; 85378; 85610; 85730; 87040; 87071; 87077; 87186; 87205; 87426; 93005; 93306; 93356; 93458; 93571; 94660; 97039; 99291; C1887; C1894; G0378; J0153; J0696; J1160; J1250; J1644; J1650; J1756; J1940; J2260; J2270; J2405; J3490; J7050; Q9967; U0003

== ENCOUNTER → 2020-01-03 | Outpatient (CLI) | payer MEDICARE ==
[~2020-01-03] MED LIST: ACET325C6 PO; ASPI-1005 PO; ATOR40TA69 PO; CARV3.12 PO; CARV6.25 PO; CLOP75TA14 PO; CYCL5TAB PO; DIGO125T71 PO; FURO20TA6 PO; METHI10 PO; SACU1TAB PO
== END | disposition home or self-care (01) ==
LOC: SHCH 08:54
PROVIDERS: ATTEND Internal Medicine Cardiovascular Disease
DX: I07.1 Rheumatic tricuspid insufficiency (principal); I25.5 Ischemic cardiomyopathy
CPT/HCPCS: 93306; 93356

== ENCOUNTER 2020-03-22 12:18 | Emergency (ER) | payer MEDICARE ==
[2020-03-22] MEDS ORDERED: ASPIRIN 81MG TAB.CHEW ONE (12:29)
[2020-03-22 12:51] LABS: BASOPHILS % (AUTO) 0.4 % (0.0-5.0); EOSINOPHILS % (AUTO) 1.4 % (0.0-8.0); HEMATOCRIT 38.1 % (42-54); LYMPHOCYTES % (AUTO) 12.9 % (21.0-51.0); MEAN CORPUSCULAR HGB CONC 33.1 g/dL (32.0-36.0); MEAN CORPUSCULAR VOLUME 93.6 fL (79-99); MONOCYTES % (AUTO) 6.8 % (3.0-13.0); NEUTROPHILS % (AUTO) 78.1 % (40.0-77.0); PLATELET COUNT (AUTO) 172 K/uL (130-400); RED BLOOD CELL COUNT(AUTO) 4.07 MIL/uL (4.50-6.20); RED CELL DISTRIBUTION WIDTH 13.2 % (11.0-15.5); WHITE BLOOD COUNT (AUTO) 7.7 K/uL (4.8-10.8)
[2020-03-22 13:00] LABS: CREATININE 1.3 mg/dL (0.5-1.5); POTASSIUM 4.8 mmol/L (3.5-5.1)
[2020-03-22 13:01] LABS: PROTHROMBIN TIME 10.9 SEC (9.6-11.6)
[2020-03-22 13:03] LABS: PARTIAL THROMBOPLASTIN TIME 22.4 SEC (26.3-35.5)
[2020-03-22 13:05] LABS: ALBUMIN 4.3 g/dL (3.5-5.0); BILIRUBIN,TOTAL 0.6 mg/dL (0.2-1.0); TOTAL PROTEIN, SERUM 7.8 g/dL (6.0-8.3)
[2020-03-22 13:44] LABS: B-TYPE NATRIURETIC PEPTIDE 185 pg/mL (0-100)
== END 2020-03-22 15:14 | disposition home or self-care (01) ==
LOC: EDH 12:18
DX: B34.9 Viral infection, unspecified (principal); R06.02 Shortness of breath; Z20.822 Contact with and (suspected) exposure to COVID-19; E11.9 Type 2 diabetes mellitus without complications; I10 Essential (primary) hypertension; I25.10 Atherosclerotic heart disease of native coronary artery without angina pectoris; Z86.73 Personal history of transient ischemic attack (TIA), and cerebral infarction without residual deficits; Z79.899 Other long term (current) drug therapy; Z87.891 Personal history of nicotine dependence
CPT/HCPCS: 36415; 71045; 80053; 82550; 83880; 84484; 85025; 85610; 85730; 87426; 93005

== ENCOUNTER 2020-04-10 08:08 | Inpatient (IN) | payer MEDICARE ==
[2020-04-07 08:36] LABS: BASOPHILS % (AUTO) 0.9 % (0.0-5.0); EOSINOPHILS % (AUTO) 2.6 % (0.0-8.0); LYMPHOCYTES % (AUTO) 19.4 % (21.0-51.0); MEAN CORPUSCULAR HEMOGLOBIN 31.2 pg (27.0-33.0); MEAN CORPUSCULAR VOLUME 97.5 fL (79-99); NEUTROPHILS % (AUTO) 69.8 % (40.0-77.0); PLATELET COUNT (AUTO) 142 K/uL (130-400); RED BLOOD CELL COUNT(AUTO) 3.59 MIL/uL (4.50-6.20); RED CELL DISTRIBUTION WIDTH 13.6 % (11.0-15.5); WHITE BLOOD COUNT (AUTO) 6.4 K/uL (4.8-10.8)
[2020-04-07 08:46] LABS: CREATININE 1.4 mg/dL (0.5-1.5); POTASSIUM 4.5 mmol/L (3.5-5.1)
[2020-04-07 08:48] LABS: INR 1.05 (0.85-1.15); PROTHROMBIN TIME 11.4 SEC (9.6-11.6)
[2020-04-07 08:50] LABS: PARTIAL THROMBOPLASTIN TIME 25.1 SEC (26.3-35.5)
[2020-04-07 10:10] VITALS: BP 136/69
[~2020-04-10] VITALS: Ht 165.1 cm; Wt 61.1 kg
[2020-04-10] VITALS (10 sets, daily range): BP systolic 79–119; BP diastolic 49–70
[2020-04-10] MEDS: CEFAZOLIN SODIUM 1 GM VIAL IVP SCH (05:00)
[~2020-04-10 08:08] MED LIST changes: -ACET325C6 PO; -CARV6.25 PO; -CLOP75TA14 PO; +CLOP75TA32 PO; -CYCL5TAB PO; -DIGO125T71 PO; +FURO20TA4 PO; -FURO20TA6 PO; +METH-387 PO; -METHI10 PO; +SPIR25TA6 PO
[2020-04-10] MEDS ORDERED: 0.9%NACL 1000ML 1,000 ML IV ONE (08:28)
[2020-04-10] MEDS ORDERED: CEFAZOLIN SODIUM 1 GM VIAL ONE (10:36)
[2020-04-10] MEDS ORDERED: BUPIVACAINE/PF 0.25% 50ML VIAL IJ ONE (10:37)
[2020-04-10] MEDS ORDERED: MEPERIDINE-PF 25 MG/ML SYG ONE ×2 (10:37→11:57)
[2020-04-10] MEDS ORDERED: LIDOCAINE HCL 1% MDV 50ML VIAL ONE (10:37)
[2020-04-10] MEDS ORDERED: MIDAZOLAM HCL 1 MG/ML 2ML VIAL ONE ×2 (10:37→11:57)
[2020-04-10] MEDS ORDERED: IODIXANOL 320 MG/ML 100 ML VIAL ONE (10:58)
[2020-04-10] MEDS ORDERED: PHENYLEPHRINE HCL 10 MG/ML 5ML VIAL IV ONE (12:11)
[2020-04-10] MEDS ORDERED: ACETAMINOPHEN WITH CODEINE 1 TAB TAB PO PRN (13:45)
[2020-04-10] MEDS: FUROSEMIDE 20 MG TABLET PO SCH (20:42)
[2020-04-10] MEDS: ATORVASTATIN 40 MG TABLET PO SCH (20:42)
[2020-04-10] MEDS: CLOPIDOGREL 75MG TAB PO SCH (20:42)
[2020-04-10] MEDS: CARVEDILOL 3.125 MG TABLET PO SCH (20:44)
[2020-04-10] MEDS: VALSARTAN PO SCH (20:44)
[2020-04-10] MEDS: SACUBITRIL PO SCH (20:44)
[2020-04-11] VITALS (7 sets, daily range): BP systolic 65–138; BP diastolic 48–87
[2020-04-11 04:17] LABS: BASOPHILS % (AUTO) 0.5 % (0.0-5.0); EOSINOPHILS % (AUTO) 1.8 % (0.0-8.0); HEMATOCRIT 30.1 % (42-54); LYMPHOCYTES % (AUTO) 15.8 % (21.0-51.0); MEAN CORPUSCULAR HEMOGLOBIN 31.8 pg (27.0-33.0); MEAN CORPUSCULAR HGB CONC 33.6 g/dL (32.0-36.0); MEAN CORPUSCULAR VOLUME 94.7 fL (79-99); NEUTROPHILS % (AUTO) 73.7 % (40.0-77.0); PLATELET COUNT (AUTO) 118 K/uL (130-400); RED BLOOD CELL COUNT(AUTO) 3.18 MIL/uL (4.50-6.20); RED CELL DISTRIBUTION WIDTH 13.6 % (11.0-15.5); WHITE BLOOD COUNT (AUTO) 5.5 K/uL (4.8-10.8)
[2020-04-11 04:29] LABS: CREATININE 1.2 mg/dL (0.5-1.5); POTASSIUM 3.9 mmol/L (3.5-5.1)
[2020-04-11] MEDS: CEFAZOLIN SODIUM 1 GM VIAL IVP SCH (05:00)
[2020-04-11] MEDS: METHIMAZOLE 10 MG TAB PO SCH (09:00)
[2020-04-11] MEDS: FUROSEMIDE 20 MG TABLET PO SCH (09:00)
[2020-04-11] MEDS: VALSARTAN PO SCH (09:00)
[2020-04-11] MEDS: CARVEDILOL 3.125 MG TABLET PO SCH (09:00)
[2020-04-11] MEDS: SACUBITRIL PO SCH (09:00)
[2020-04-11] MEDS: SPIRONOLACTONE 25 MG TAB PO SCH (11:10)
[2020-04-11] MEDS: ACETAMINOPHEN WITH CODEINE 1 TAB TAB PO PRN (11:10)
[2020-04-11] MEDS: ASPIRIN 81MG CHEW TAB PO SCH (11:13)
[2020-04-11] MEDS: CLOPIDOGREL 75MG TAB PO SCH (21:59)
[2020-04-11] MEDS: ATORVASTATIN 40 MG TABLET PO SCH (21:59)
[2020-04-12 00:08] VITALS: BP 96/53
[2020-04-12 04:08] VITALS: BP 113/68
[2020-04-12 05:11] LABS: BASOPHILS % (AUTO) 0.4 % (0.0-5.0); EOSINOPHILS % (AUTO) 3.5 % (0.0-8.0); HEMATOCRIT 28.2 % (42-54); LYMPHOCYTES % (AUTO) 21.1 % (21.0-51.0); MEAN CORPUSCULAR HGB CONC 32.6 g/dL (32.0-36.0); MEAN CORPUSCULAR VOLUME 94.9 fL (79-99); MONOCYTES % (AUTO) 9.3 % (3.0-13.0); NEUTROPHILS % (AUTO) 65.3 % (40.0-77.0); PLATELET COUNT (AUTO) 98 K/uL (130-400); RED BLOOD CELL COUNT(AUTO) 2.97 MIL/uL (4.50-6.20); RED CELL DISTRIBUTION WIDTH 13.5 % (11.0-15.5); WHITE BLOOD COUNT (AUTO) 4.8 K/uL (4.8-10.8)
[2020-04-12 05:27] LABS: ALBUMIN 3.1 g/dL (3.5-5.0); BILIRUBIN,TOTAL 0.5 mg/dL (0.2-1.0); CREATININE 1.1 mg/dL (0.5-1.5); POTASSIUM 4.1 mmol/L (3.5-5.1)
[2020-04-12] MEDS: CEFAZOLIN SODIUM 1 GM VIAL IVP SCH (05:45)
[2020-04-12 08:01] VITALS: BP 108/64
[2020-04-12] MEDS: METHIMAZOLE 10 MG TAB PO SCH (09:00)
[2020-04-12] MEDS: SPIRONOLACTONE 25 MG TAB PO SCH (09:21)
[2020-04-12] MEDS: CARVEDILOL 3.125 MG TABLET PO SCH (09:23)
[2020-04-12] MEDS: ASPIRIN 81MG CHEW TAB PO SCH (09:26)
[2020-04-12 11:44] VITALS: BP 103/63
[2020-04-12 16:00] VITALS: BP 119/70
[2020-04-12 17:02] LABS: HEMATOCRIT 30.8 % (42-54); MEAN CORPUSCULAR HEMOGLOBIN 31.8 pg (27.0-33.0); MEAN CORPUSCULAR HGB CONC 32.8 g/dL (32.0-36.0); MEAN CORPUSCULAR VOLUME 96.9 fL (79-99); PLATELET COUNT (AUTO) 109 K/uL (130-400); RED BLOOD CELL COUNT(AUTO) 3.18 MIL/uL (4.50-6.20); RED CELL DISTRIBUTION WIDTH 13.3 % (11.0-15.5); WHITE BLOOD COUNT (AUTO) 6.3 K/uL (4.8-10.8)
[2020-04-12 20:05] VITALS: BP 113/63
[2020-04-13 00:20] VITALS: BP 118/71
[2020-04-13] MEDS: CARVEDILOL 3.125 MG TABLET PO SCH ×3 (01:05→21:04)
[2020-04-13] MEDS: ATORVASTATIN 40 MG TABLET PO SCH ×2 (01:06→21:04)
[2020-04-13] MEDS: CLOPIDOGREL 75MG TAB PO SCH ×2 (01:06→21:03)
[2020-04-13 04:37] VITALS: BP 98/57
[2020-04-13 04:54] LABS: BASOPHILS % (AUTO) 0.7 % (0.0-5.0); EOSINOPHILS % (AUTO) 4.8 % (0.0-8.0); HEMATOCRIT 26.9 % (42-54); LYMPHOCYTES % (AUTO) 24.1 % (21.0-51.0); MEAN CORPUSCULAR HEMOGLOBIN 31.1 pg (27.0-33.0); MEAN CORPUSCULAR HGB CONC 33.1 g/dL (32.0-36.0); MEAN CORPUSCULAR VOLUME 94.1 fL (79-99); MONOCYTES % (AUTO) 9.4 % (3.0-13.0); NEUTROPHILS % (AUTO) 60.8 % (40.0-77.0); PLATELET COUNT (AUTO) 95 K/uL (130-400); RED BLOOD CELL COUNT(AUTO) 2.86 MIL/uL (4.50-6.20); RED CELL DISTRIBUTION WIDTH 13.4 % (11.0-15.5); WHITE BLOOD COUNT (AUTO) 4.4 K/uL (4.8-10.8)
[2020-04-13 05:25] LABS: ALBUMIN 3.3 g/dL (3.5-5.0); BILIRUBIN,TOTAL 0.6 mg/dL (0.2-1.0); POTASSIUM 3.8 mmol/L (3.5-5.1); TOTAL PROTEIN, SERUM 6.2 g/dL (6.0-8.3)
[2020-04-13] MEDS: CEFAZOLIN SODIUM 1 GM VIAL IVP SCH (05:48)
[2020-04-13] MEDS: ASPIRIN 81MG CHEW TAB PO SCH (07:59)
[2020-04-13] MEDS: SPIRONOLACTONE 25 MG TAB PO SCH (07:59)
[2020-04-13] MEDS: METHIMAZOLE 10 MG TAB PO SCH (07:59)
[2020-04-13 08:00] VITALS: BP 127/74
[2020-04-13 12:00] VITALS: BP 102/57
[2020-04-13 16:00] VITALS: BP 102/59
[2020-04-13 20:33] VITALS: BP 108/62
[2020-04-14 00:19] VITALS: BP 105/56
[2020-04-14] MEDS: CEFAZOLIN SODIUM 1 GM VIAL IVP SCH (05:00)
[2020-04-14 05:12] VITALS: BP 102/56
[2020-04-14 05:18] LABS: BASOPHILS % (AUTO) 0.8 % (0.0-5.0); EOSINOPHILS % (AUTO) 5.9 % (0.0-8.0); HEMATOCRIT 24.3 % (42-54); LYMPHOCYTES % (AUTO) 26.3 % (21.0-51.0); MEAN CORPUSCULAR HEMOGLOBIN 31.3 pg (27.0-33.0); MEAN CORPUSCULAR HGB CONC 32.9 g/dL (32.0-36.0); MEAN CORPUSCULAR VOLUME 94.9 fL (79-99); MONOCYTES % (AUTO) 10.5 % (3.0-13.0); NEUTROPHILS % (AUTO) 56.2 % (40.0-77.0); PLATELET COUNT (AUTO) 91 K/uL (130-400); RED BLOOD CELL COUNT(AUTO) 2.56 MIL/uL (4.50-6.20); RED CELL DISTRIBUTION WIDTH 13.3 % (11.0-15.5); WHITE BLOOD COUNT (AUTO) 3.9 K/uL (4.8-10.8)
[2020-04-14 05:41] LABS: BILIRUBIN,TOTAL 0.5 mg/dL (0.2-1.0); CREATININE 0.9 mg/dL (0.5-1.5); POTASSIUM 4.2 mmol/L (3.5-5.1); TOTAL PROTEIN, SERUM 5.8 g/dL (6.0-8.3)
[2020-04-14 08:20] VITALS: BP 113/61
[2020-04-14] MEDS: METHIMAZOLE 10 MG TAB PO SCH (10:05)
[2020-04-14] MEDS: CARVEDILOL 3.125 MG TABLET PO SCH ×2 (10:05→20:48)
[2020-04-14] MEDS: ASPIRIN 81MG CHEW TAB PO SCH (10:05)
[2020-04-14] MEDS: SPIRONOLACTONE 25 MG TAB PO SCH (10:05)
[2020-04-14] MEDS: IRON SUCROSE COMPLEX 100 MG in 0.9%NACL 50ML 50 ML IV SCH (10:06)
[2020-04-14 12:19] VITALS: BP 99/59
[2020-04-14] MEDS ORDERED: COMPOUND IV MISC 1 EACH IVSOLN MISC PRN (12:45)
[2020-04-14] MEDS: FOLIC ACID 1 MG TABLET PO SCH (13:54)
[2020-04-14] MEDS ORDERED: IRON SUCROSE COMPLEX 100 MG in 0.9%NACL 50ML 50 ML IV SCH (14:00)
[2020-04-14 16:00] VITALS: BP 109/60
[2020-04-14 20:00] VITALS: BP 104/56
[2020-04-14] MEDS: CLOPIDOGREL 75MG TAB PO SCH (20:48)
[2020-04-14] MEDS: ATORVASTATIN 40 MG TABLET PO SCH (20:48)
[2020-04-14] MEDS: ACETAMINOPHEN WITH CODEINE 1 TAB TAB PO PRN (20:57)
[2020-04-15] VITALS: BP 99/51
[2020-04-15 04:00] VITALS: BP 96/53
[2020-04-15] MEDS: CEFAZOLIN SODIUM 1 GM VIAL IVP SCH (05:00)
[2020-04-15 05:01] LABS: BASOPHILS % (AUTO) 1.1 % (0.0-5.0); HEMATOCRIT 24.9 % (42-54); MEAN CORPUSCULAR HEMOGLOBIN 30.9 pg (27.0-33.0); MEAN CORPUSCULAR HGB CONC 32.5 g/dL (32.0-36.0); MONOCYTES % (AUTO) 11.2 % (3.0-13.0); NEUTROPHILS % (AUTO) 48.4 % (40.0-77.0); PLATELET COUNT (AUTO) 98 K/uL (130-400); RED BLOOD CELL COUNT(AUTO) 2.62 MIL/uL (4.50-6.20); RED CELL DISTRIBUTION WIDTH 13.2 % (11.0-15.5); WHITE BLOOD COUNT (AUTO) 3.7 K/uL (4.8-10.8)
[2020-04-15 05:25] LABS: BILIRUBIN,TOTAL 0.5 mg/dL (0.2-1.0); POTASSIUM 4.4 mmol/L (3.5-5.1); TOTAL PROTEIN, SERUM 5.9 g/dL (6.0-8.3)
[2020-04-15 08:00] VITALS: BP 140/81
[2020-04-15] MEDS: SPIRONOLACTONE 25 MG TAB PO SCH (08:10)
[2020-04-15] MEDS: ASPIRIN 81MG CHEW TAB PO SCH (08:10)
[2020-04-15] MEDS: IRON SUCROSE COMPLEX 100 MG in 0.9%NACL 50ML 50 ML IV SCH (08:10)
[2020-04-15] MEDS: METHIMAZOLE 10 MG TAB PO SCH (08:11)
[2020-04-15] MEDS: CARVEDILOL 3.125 MG TABLET PO SCH (08:11)
[2020-04-15] MEDS ORDERED: IRON SUCROSE COMPLEX 100 MG in 0.9%NACL 50ML 50 ML IV SCH (09:00)
[2020-04-15 12:19] VITALS: BP 102/60
[2020-04-15] MEDS: FOLIC ACID 1 MG TABLET PO SCH (13:00)
[2020-04-15 16:00] VITALS: BP 109/67
[2020-04-15] MEDS ORDERED: FURO20TA4 PO (16:51)
[2020-04-15] MEDS: ACETAMINOPHEN WITH CODEINE 1 TAB TAB PO PRN (20:01)
== END 2020-04-15 20:22 | disposition home or self-care (01) | DRG 227 ==
LOC: DAH 08:08 → OBSVTOIN 08:09 → DAHIP 08:09 → DAH 08:09 → 4DH 14:37
PROVIDERS: ADMIT Internal Medicine; ATTEND Internal Medicine
PROC: 0JH609Z Insertion of Cardiac Resynchronization Defibrillator Pulse Generator into Chest Subcutaneous Tissue and Fascia, Open Approach (ICD-10-PCS; principal; 2020-04-10)
PROC: 02HL3KZ Insertion of Defibrillator Lead into Left Ventricle, Percutaneous Approach (ICD-10-PCS; 2020-04-10)
PROC: 02HK3KZ Insertion of Defibrillator Lead into Right Ventricle, Percutaneous Approach (ICD-10-PCS; 2020-04-10)
PROC: 02H63KZ Insertion of Defibrillator Lead into Right Atrium, Percutaneous Approach (ICD-10-PCS; 2020-04-10)
PROC: 4B02XTZ Measurement of Cardiac Defibrillator, External Approach (ICD-10-PCS; 2020-04-13)
DX: I44.7 Left bundle-branch block, unspecified (principal); I97.51 Accidental puncture and laceration of a circulatory system organ or structure during a circulatory system procedure; I50.22 Chronic systolic (congestive) heart failure; T82.847A Pain due to cardiac prosthetic devices, implants and grafts, initial encounter; I25.5 Ischemic cardiomyopathy; E78.5 Hyperlipidemia, unspecified; I95.9 Hypotension, unspecified; D70.9 Neutropenia, unspecified; D69.6 Thrombocytopenia, unspecified; E03.9 Hypothyroidism, unspecified; I25.10 Atherosclerotic heart disease of native coronary artery without angina pectoris; D52.9 Folate deficiency anemia, unspecified; I11.0 Hypertensive heart disease with heart failure; Z80.9 Family history of malignant neoplasm, unspecified; Z82.3 Family history of stroke; I25.2 Old myocardial infarction; Z82.49 Family history of ischemic heart disease and other diseases of the circulatory system; Y71.8 Miscellaneous cardiovascular devices associated with adverse incidents, not elsewhere classified; Y92.9 Unspecified place or not applicable
CPT/HCPCS: 33225; 33249; 36415; 71045; 80048; 80053; 82270; 83540; 83550; 83883; 85025; 85027; 85610; 85730; 86334; 93306; 93308; 93356; 99156; 99157; A4606; C1769; G0378; J0690; J1756; J2175; J2250; J2370; J3490; J7030; Q9967

== ENCOUNTER → 2020-05-03 | Outpatient (CLI) | payer MEDICARE ==
[~2020-05-03] MED LIST changes: -METH-387 PO; +METH10TA7 PO; -SACU1TAB PO; -SPIR25TA6 PO
== END | disposition home or self-care (01) ==
LOC: RAH 09:25
PROVIDERS: ATTEND Internal Medicine Cardiovascular Disease
DX: R60.0 Localized edema (principal)
CPT/HCPCS: 93971

== ENCOUNTER 2021-05-01 08:01 | Emergency (ER) | payer MEDICARE ==
[~2021-05-01] VITALS: Ht 165.1 cm; Wt 59.9 kg
[~2021-05-01 08:01] MED LIST changes: +METH-387 PO; -METH10TA7 PO
[2021-05-01 08:40] LABS: BASOPHILS % (AUTO) 0.7 % (0.0-5.0); EOSINOPHILS % (AUTO) 3.8 % (0.0-8.0); HEMATOCRIT 41.9 % (42-54); MEAN CORPUSCULAR HEMOGLOBIN 29.8 pg (27.0-33.0); MEAN CORPUSCULAR HGB CONC 31.7 g/dL (32.0-36.0); MEAN CORPUSCULAR VOLUME 93.9 fL (79-99); MONOCYTES % (AUTO) 6.3 % (3.0-13.0); PLATELET COUNT (AUTO) 131 K/uL (130-400); RED BLOOD CELL COUNT(AUTO) 4.46 MIL/uL (4.50-6.20); RED CELL DISTRIBUTION WIDTH 13.6 % (11.0-15.5); WHITE BLOOD COUNT (AUTO) 8.2 K/uL (4.8-10.8)
[2021-05-01 08:58] LABS: CREATININE 1.2 mg/dL (0.5-1.5); POTASSIUM 4.4 mmol/L (3.5-5.1)
[2021-05-01 09:00] LABS: ALBUMIN 4.4 g/dL (3.5-5.0); BILIRUBIN,TOTAL 0.5 mg/dL (0.2-1.0); TOTAL PROTEIN, SERUM 8.1 g/dL (6.0-8.3)
[2021-05-01 09:07] LABS: APPEARANCE,URINE Clear (CLEAR); BILIRUBIN,URINE Negative (NEGATIVE); COLOR,URINE Yellow (YELLOW); GLUCOSE, URINE (UA) Negative (NEGATIVE); KETONES,URINE Negative (NEGATIVE); LEUKOCYTE ESTERASE ,URINE Negative (NEGATIVE); NITRATE,URINE Negative (NEGATIVE); OCCULT BLOOD,URINE Negative (NEGATIVE); PROTEIN,URINE Negative (NEGATIVE)
[2021-05-01] MEDS ORDERED: 0.9%NACL 1000ML 1,000 ML IV ONE (09:17)
[2021-05-01] MEDS ORDERED: 0.9%NACL 1000ML 1,000 ML IV SCH (09:30)
[2021-05-01] MEDS ORDERED: FAMO20TA8 PO (09:46)
[2021-05-01 11:25] VITALS: BP 137/69
== END 2021-05-01 11:26 | disposition home or self-care (01) ==
LOC: EDH 08:01
DX: A08.4 Viral intestinal infection, unspecified (principal); E78.00 Pure hypercholesterolemia, unspecified; I10 Essential (primary) hypertension; Z79.82 Long term (current) use of aspirin; Z95.810 Presence of automatic (implantable) cardiac defibrillator
CPT/HCPCS: 36415; 80053; 81003; 83690; 85025; 96360; 96361; 99283; J7030; 87507

== ENCOUNTER 2022-08-01 21:40 | Emergency (ER) | payer MEDICARE ==
[~2022-08-01] VITALS: Ht 165.1 cm; Wt 61.7 kg
[~2022-08-01 21:40] MED LIST changes: +FAMO20TA8 PO
[2022-08-01 22:15] LABS: BASOPHILS % (AUTO) 0.6 % (0.0-5.0); EOSINOPHILS % (AUTO) 3.1 % (0.0-8.0); HEMATOCRIT 37.9 % (42-54); LYMPHOCYTES % (AUTO) 16.3 % (21.0-51.0); MEAN CORPUSCULAR HGB CONC 32.2 g/dL (32.0-36.0); MEAN CORPUSCULAR VOLUME 93.1 fL (79-99); MONOCYTES % (AUTO) 5.3 % (3.0-13.0); NEUTROPHILS % (AUTO) 74.3 % (40.0-77.0); PLATELET COUNT (AUTO) 133 K/uL (130-400); RED BLOOD CELL COUNT(AUTO) 4.07 MIL/uL (4.50-6.20); WHITE BLOOD COUNT (AUTO) 4.9 K/uL (4.8-10.8)
[2022-08-01 22:27] LABS: INR 1.01 (0.85-1.15)
[2022-08-01 22:42] LABS: CREATININE 1.1 mg/dL (0.5-1.5); POTASSIUM 3.9 mmol/L (3.5-5.1)
[2022-08-01 22:49] LABS: ALBUMIN 3.9 g/dL (3.5-5.0); TOTAL PROTEIN, SERUM 7.1 g/dL (6.0-8.3)
[2022-08-01 22:52] LABS: B-TYPE NATRIURETIC PEPTIDE 97 pg/mL (0-100)
[2022-08-01 23:30] LABS: APPEARANCE,URINE CLEAR (CLEAR); BILIRUBIN,URINE NEGATIVE (NEGATIVE); COLOR,URINE LIGHT-YELLOW (YELLOW); GLUCOSE, URINE (UA) NEGATIVE (NEGATIVE); KETONES,URINE NEGATIVE (NEGATIVE); LEUKOCYTE ESTERASE ,URINE NEGATIVE Leu/uL (NEGATIVE); NITRATE,URINE NEGATIVE (NEGATIVE); OCCULT BLOOD,URINE NEGATIVE (NEGATIVE); PROTEIN,URINE NEGATIVE (NEGATIVE); UROBILINOGEN,URINE 0.2 mg/dL (0.2-1.0)
[2022-08-01] MEDS ORDERED: NITROGLYCERIN 0.4 MG SL TAB SL ONE (23:49)
[2022-08-01] MEDS ORDERED: ASPIRIN 81MG CHEW TAB ONE (23:50)
[2022-08-02] MEDS ORDERED: NITROGLYCERIN 0.4 MG SL TAB SL PRN
[2022-08-02] MEDS ORDERED: ASPIRIN 81MG CHEW TAB PO ONE
[2022-08-02 00:54] VITALS: BP 124/86
[2022-08-02] MEDS ORDERED: IBUP-1493 PO (00:57)
[2022-08-02] MEDS ORDERED: NITR.4 SL (00:57)
== END 2022-08-02 01:07 | disposition home or self-care (01) ==
LOC: EDH 21:40
DX: I25.10 Atherosclerotic heart disease of native coronary artery without angina pectoris (principal); R07.89 Other chest pain; E78.00 Pure hypercholesterolemia, unspecified; I10 Essential (primary) hypertension; Z79.899 Other long term (current) drug therapy
CPT/HCPCS: 36415; 71045; 80053; 81003; 83880; 84484; 85025; 85610; 93005

== ENCOUNTER 2023-02-11 22:32 | Emergency (ER) | payer MEDICARE ==
[~2023-02-11] VITALS: Ht 160 cm; Wt 61.7 kg
[~2023-02-11 22:32] MED LIST changes: +IBUP-1493 PO; +NITR.4 SL
[2023-02-12 00:23] LABS: RAPID GROUP A STREP positive (NEGATIVE)
[2023-02-12] MEDS ORDERED: ACETAMINOPHEN 325 MG TAB PO ONE (00:30)
[2023-02-12] MEDS ORDERED: IBUPROFEN 600 MG TABLET PO ONE (00:30)
[2023-02-12 00:32] LABS: INFLUENZA TYPE B Negative For Type B (NEGATIVE)
[2023-02-12 00:34] LABS: SARS-CoV-2, RNA, NAAT NEGATIVE SARS CoV-2 (NEGATIVE)
[2023-02-12 00:42] LABS: INFLUENZA TYPE A Positive For Type A (NEGATIVE)
[2023-02-12 00:43] VITALS: TEMP 100.6
[2023-02-12] MEDS ORDERED: CEPH500B PO (01:17)
[2023-02-12] MEDS ORDERED: OSEL75 PO (01:17)
[2023-02-12 01:30] VITALS: BP 125/78; PULSE 88; RESP 18
[2023-02-12] MEDS ORDERED: CEPHALEXIN 500 MG CAPSULE PO ONE (01:30)
== END 2023-02-12 01:32 | disposition home or self-care (01) ==
LOC: EDH 22:32
DX: J10.1 Influenza due to other identified influenza virus with other respiratory manifestations (principal); J02.0 Streptococcal pharyngitis; E78.00 Pure hypercholesterolemia, unspecified; I10 Essential (primary) hypertension; Z79.02 Long term (current) use of antithrombotics/antiplatelets; Z79.1 Long term (current) use of non-steroidal anti-inflammatories (NSAID); Z79.82 Long term (current) use of aspirin; Z95.0 Presence of cardiac pacemaker; Z20.822 Contact with and (suspected) exposure to COVID-19
CPT/HCPCS: 99284; 87635; 87880; 87804 ×2; C9803

== ENCOUNTER 2024-12-10 17:18 | Emergency (ER) | payer MEDICARE ==
[~2024-12-10] VITALS: Ht 165.1 cm; Wt 59.0 kg
[~2024-12-10 17:18] MED LIST changes: +CEPH500B PO; +OSEL75 PO
--- NOTE | 2024-12-10 17:38 | ERN ---
ED Note History of Present Illness Stated Complaint: SOB Chief Complaint: Shortness of Breath Time Seen by MD: 17:21 Time Seen by Midlevel: 17:21 Dictation: The patient is a 79-year-old male with a history of CHF, hyperlipidemia, anemia, hypertension, CAD who presents to the emergency department with complaints of nontraumatic right upper back pain associated with shortness of breath. Patient reports symptoms started on Friday but became worse today. Reports he occasionally takes Tylenol which helps with the symptoms. Patient denies any chest pain, denies any cough or congestion, denies any fevers. Allergies: Coded Allergies: No Known Drug Allergies (Verified Allergy, Unknown, 03/28/20) Home Meds Active Scripts Cephalexin Monohydrate (Keflex) 500 Mg Cap, 500 MG PO QID for 7 Days, #28 CAP Prov:RICHARD COX MD 02/12/23 Oseltamivir Phosphate (Tamiflu) 75 Mg Cap, 75 MG PO BID, #10 CAP Prov:RICHARD COX MD 02/12/23 Nitroglycerin (Nitrostat/Nitroquick) 0.4 Mg Sltb, 0.4 MG SL AD, #20 TAB.SL If you develop chest pain take 1 tablet sublingual every 5 minutes as needed no more than 3 pills Prov:RICHARD COX MD 08/02/22 Ibuprofen (Motrin/Advil) 800 Mg Tab, 800 MG PO TID, #30 TAB Prov:RICHARD COX MD 08/02/22 Famotidine (Famotidine) 20 Mg Tablet, 20 MG PO BID for 30 Days, #60 TAB Prov:MAICOL PAGE MD 05/01/21 Atorvastatin Calcium (LIPITOR) 40 Mg Tablet, 40 MG PO HS for 90 Days, #90 TAB Prov:EVELIN JOSE MD 10/08/19 Aspirin (ASPIRIN 81MG CHEW TAB) 81 Mg Tab.chew, 81 MG PO DAILY for 90 Days, #90 TAB.CHEW Prov:EVELIN JOSE MD 10/08/19 Reported Medications Furosemide (Furosemide) 20 Mg Tablet, 20 MG PO BID, TAB 04/15/20 Carvedilol (Carvedilol) 3.125 Mg Tablet, 3.125 MG PO BID, TAB 04/07/20 Clopidogrel Bisulfate (Clopidogrel) 75 Mg Tablet, 75 MG PO HS, TAB 04/07/20 Methimazole (Methimazole) 10 Mg Tablet, 10 MG PO DAILY, TAB 1/2 TAB DAILY 04/07/20 Past Medical History Past Medical History: Anemia, CHF, High Cholesterol, Heart Disease, Hyperten [place], [place] Surgical History: Unknown Family History: HTN Social History: Negative, Lives with family RN Note Reviewed/Agreed w/PFSH: Yes Review of System Dictation Constitutional: Negative for fever,chills, and weight loss Eyes: Negative for injury, pain,redness, and discharge ENT: Negative for injury,pain or swelling Cardiovascular: Negative for chest pain, palpitations, and edema Respiratory: Negative for cough, and wheezing, positive for shortness of breath Abdomen/GI: Negative for abdominal pain, nausea, vomiting, diarrhea, and constipation Back: Negative for injury positive for upper back pain : Negative for injury, bleeding and discharge MS/Extremity: Negative for injury and deformity Skin: Negative for rash, and discoloration Neuro: Negative for headache, weakness, numbness, tingling, and seizure Psych: Negative for suicide ideation, homicidal ideation, and hallucinations Initial Vital Sign VS Vital Signs Date Time Temp Pulse Resp B/P (MAP) Pulse Ox O2 Delivery O2 Flow Rate FiO2 12/10/24 17:20 69 20 130/61 100 12/10/24 18:09 98.8 Room Air* 0 21 Physical Exam Dictation Vital Signs reviewed General Appearance: Alert, oriented x 3, no acute distress, well developed, nourished. Head and Face: non-traumatic. Eyes: PERRL, pink conjunctivas, eyelid no trauma, anterior chamber with arcus senilis. Ears: Pinnas intact and no signs of trauma or erythema ear canals clear and no discharge TM no erythema Nose: No discharge, no bleeding. Oropharynx: Mouth normal, tongue pink. pharynx clear,no erythema, tonsils no exudates, no abscesses noted, mucous membrane moist Neck: Supple, non-tender, no thyromegaly, no masses, no JVD, no bruits Breast:Deferred Chest:No tenderness, no crepitus, no paradoxical movement, no retractions Lungs:Clear, well-ventilated, symmetric, no rales, no wheezing, no rhonchi, no stridor, diminished right lower lobe Heart: Regular rate, regular rhythm, no murmur, no gallops Vascular: no peripheral edema, Abdomen: Soft, positive bowel sounds, nondistended, no guarding, nontender, no rebound, no masses no hepatomegaly, no splenomegaly, no Knapp's sign, no hernias. Rectal: Deferred Genital: Deferred Neurological: Normal speech, motor function intact, sensory function intact Musculoskeletal: Neck nontender, full range of motion, back nontender, full range of motion, Extremities: nontender, full range of motion Skin: Color pink, dry, no turgor, no rash, no lacerations, no abrasions, no contusions. Lymphatic: Deferred Results (Laboratory/Radiology) Laboratory/Radiology Laboratory Tests Test 12/10/24 17:44 12/10/24 17:51 Influenza Type A Antigen Negative For Type A Influenza Type B Antigen Negative For Type B SARS-CoV-2 Antigen (Rapid) PRESUMPTIVE NEGATIVE White Blood Count 4.2 K/uL (4.8-10.8) L Red Blood Count 3.71 MIL/uL (4.50-6.20) L Hemoglobin 11.5 g/dL (14.0-18.0) L Hematocrit 34.9 % (42-54) L Mean Corpuscular Volume 94.1 fL (79-99) Mean Corpuscular Hemoglobin 31.0 pg (27.0-33.0) Mean Corpuscular Hemoglobin Concent 33.0 g/dL (32.0-36.0) Red Cell Distribution Width 13.7 % (11.0-15.5) Platelet Count 113 K/uL (130-400) L Mean Platelet Volume 10.3 fL (7.5-10.5) Immature Granulocyte % (Auto) 0.2 % (0-1) Neutrophils (%) (Auto) 52.3 % (40.0-77.0) Lymphocytes (%) (Auto) 33.3 % (21.0-51.0) Monocytes (%) (Auto) 10.8 % (3.0-13.0) Eosinophils (%) (Auto) 2.4 % (0.0-8.0) Basophils (%) (Auto) 1.0 % (0.0-5.0) Neutrophils # (Auto) 2.2 K/uL (1.8-7.7) Lymphocytes # (Auto) 1.4 K/uL (1.0-4.8) Monocytes # (Auto) 0.5 K/uL (0.1-1.0) Eosinophils # (Auto) 0.10 K/uL (0.00-0.70) Basophils # (Auto) 0.04 K/uL (0.00-0.20) Absolute Immature Granulocyte (auto 0.01 K/uL (0-1) Nucleated Red Blood Cells 0.0 % (0.0-0.19) Sodium Level 141 mmol/L (136-145) Potassium Level 4.7 mmol/L (3.5-5.1) Chloride Level 107 mmol/L (101-111) Carbon Dioxide Level 26 mmol/L (21-32) Blood Urea Nitrogen 24 mg/dL (7-18) H Creatinine 1.5 mg/dL (0.5-1.3) H Glomerular Filtration Rate Calc 48 mL/min (>90) Random Glucose 102 mg/dL (70-105) Total Calcium 8.6 mg/dL (8.5-10.1) Magnesium Level 2.20 mg/dL (1.80-2.40) Total Creatine Kinase 59 U/L (21-232) # Troponin I High Sensitivity 8 ng/L (4-75) B-Type Natriuretic Peptide 79 pg/mL (0-100) REASON: sob ORDERING PHYSICIAN: RAFIQ MAHAJAN PROCEDURE: CXR1VW - CHEST 1VW EXAM: CR Chest, 1 View. CLINICAL HISTORY: sob COMPARISON: None provided. FINDINGS: LUNGS: There is no mass, infiltrate, or acute pulmonary abnormality. PLEURAL SPACES: No pleural effusion or pneumothorax. MEDIASTINUM: The cardiomediastinal silhouette is within normal limits. There is a pacemaker in place. BONES: No aggressive appearing osseous lesion seen. IMPRESSION: No acute cardiopulmonary pathology is evident. /[place] DICTATED BY: JUAN C NAIR MD DATE: 12/10/242052 ELECTRONICALLY SIGNED BY: JUAN C NAIR MD DATE: 12/10/242052 Labs Reviewed?: Yes EKG: (+) rhythm (Atrial sensed ventricular paced rhythm) EKG Comment: Date:12/10/2024 Time:1744 Ventricular rate:66 IA interval:56 QRS duration:124 QT/QTc:449/449 EKG interpretation: Atrial sensed ventricular paced rhythm Reviewed by ED Attending no STEMI ED Course ED Course Orders Procedure Category Date Status Time Cbc With Differential LAB 12/10/24 Complete 17:34 Chest 1vw RAD 12/10/24 Resulted 17:34 12 Lead Ekg Tracing- EKG 12/10/24 Complete Technical 17:34 Acetaminophen 500mg PHA 12/10/24 Complete Tab (Tylenol 500mg T 18:00 Magnesium LAB 12/10/24 Complete 17:34 Creatine Kinase, Total LAB 12/10/24 Complete 17:34 Troponin I High LAB 12/10/24 Complete Sensitivity 17:34 Basic Metabolic Panel LAB 12/10/24 Complete 17:34 B-Type Natriuretic LAB 12/10/24 Complete Peptide 17:34 Covid19 (Sars Antigen LAB 12/10/24 Complete Rapid) 17:34 Influenza Type A & B, LAB 12/10/24 Complete Rapid 17:34 Current Medications Medications (Trade) Dose Ordered Sig/[place] Route PRN Reason Start Time Stop Time Status Last Admin Dose Admin Acetaminophen (TYLenol 500MG TAB) 1,000 mg ONCE ONCE PO 12/10/24 18:00 12/10/24 18:01 DC 12/10/24 17:59 Vital Signs Date Time Temp Pulse Resp B/P (MAP) Pulse Ox O2 Delivery O2 Flow Rate FiO2 12/10/24 19:24 60 16 118/66 99 Room Air* 0 21 12/10/24 18:09 98.8 64 14 138/69 100 Room Air* 0 21 12/10/24 17:20 69 20 130/61 100 Medical Decision Making MDM MDM: The patient is a 79-year-old male with a history of CHF, hyperlipidemia, anemia, hypertension, CAD who presents to the emergency department with complaints of nontraumatic right upper back pain associated with shortness of breath. Patient reports symptoms started on Friday but became worse today. Reports he occasionally takes Tylenol which helps with the symptoms. Patient denies any chest pain, denies any cough or congestion, denies any fevers. CBC showed no leukocytosis, mild normocytic anemia, chemistry showed elevated creatinine, no other electrolyte imbalance, negative troponin, negative BNP. Chest x-ray showed no acute pathology. Patient presented with a upper right back pain, nontraumatic. Reports some pain with palpation. Patient reports also occasional shortness of breath. On physical exam patient is in no acute distress, nontoxic appearance, stable vital signs, 100% on room air, nonlabored respirations. Patient instructed to follow up with PCP. Discharge planning discussed with the patient and family who agreed to be discharged. Differential diagnosis: Pneumonia, pneumothorax, fluid overload, ACS, CHF exacerbation Need for hospitalization: Patient does not meet criteria for hospitalization. There are no social concerns with this patient. DX & DISP Disposition: Discharge Departure Impression: Primary Impression: Upper back pain on right side Additional Impression: Musculoskeletal pain Condition: Stable Additional Instructions: Your labs were unremarkable. Your chest x-ray was normal. Please follow up with your primary doctor in 1-2 days. You can continue taking Tylenol as needed for the pain. If anything worsens please return to ER. FOLLOW-UP WITH PRIMARY CARE PROVIDER IN 1 TO 2 DAYS. TAKE MEDICATIONS DIRECTED HERE IN THE EMERGENCY ROOM. OKAY TO CONTINUE HOME MEDICATIONS UNLESS O THERWISE DISCUSSED DURING YOUR VISIT IN THE EMERGENCY ROOM TODAY. RETURN TO YOUR NEAREST EMERGENCY ROOM IF SYMPTOMS WORSEN OR IF THERE IS NO IMPROVEMENT. CALL 911 IF YOU NEED IMMEDIATE ASSISTANCE. TAKE TYLENOL [id number] NEEDED AND IF NO CONTRAINDICATIONS ARE PRESENT. INCREASE ORAL HYDRATION. A WOUND CULTURE OR URINE CULTURE WAS ORDERED HERE IN THE EMERGENCY ROOM DEPARTMENT PLEASE FOLLOW-UP WITH PRIMARY CARE PROVIDER AND ADVISE THEM TO GET REPEAT PORTS FROM OUR FACILITY. IF YOU HAD ANY MARY WRAP/SPLINTS THAT WERE APPLIED HERE, PLEASE DO NOT REMOVE THEM UNTIL YOU SEE YOUR PRIMARY CARE OR SPECIALTY. Referrals: BRYNN GRIDER (PCP) Time of Disposition: 19:59 I have reviewed the case, and I agree with, Diagnosis and Plan RAFIQ MAHAJAN Dec 10, 2024 17:38
--- NOTE | 2024-12-10 17:50 | EKG ---
[facility] Test Date: 2024-12-10 Test Time: 17:44:22 Pat Name: BANDAR HAYWOOD Department: ED Room: Gender: M Sleep Tech: 0699 : 1945 Requested By: RAFIQ MAHAJAN Order Number: [id number] Reading MD: Brigid Clay Measurements Intervals [place] Rate: 66 P: 30 ME: 56 QRS: -32 QRSD: 124 T: -36 QT: 430 QTc: 449 Interpretive Statements Atrial-sensed ventricular-paced rhythm Compared to ECG 08/01/2022 21:42:34 No significant changes Electronically Signed On 12-11-2024 12:42:30 CDT by Brigid Clay Please click the below link to view image of tracing.
[2024-12-10 17:59] LABS: IMMATURE GRANULOCYTE ABSOLUTE 0.01 K/uL (0-1); NUCLEATED RED BLOOD CELLS 0.0 % (0.0-0.19); PLATELET COUNT (AUTO) 113 K/uL (130-400); RED BLOOD CELL COUNT(AUTO) 3.71 MIL/uL (4.50-6.20); RED CELL DISTRIBUTION WIDTH 13.7 % (11.0-15.5); WHITE BLOOD COUNT (AUTO) 4.2 K/uL (4.8-10.8)
[2024-12-10 18:14] LABS: CREATININE 1.5 mg/dL (0.5-1.3); GLOMERULAR FILTR. RATE CALC 48.0 mL/min (>90); GLUCOSE,RANDOM 102.0 mg/dL (70-105); SODIUM SERUM 141.0 mmol/L (136-145); UREA NITROGEN, BLOOD 24.0 mg/dL (7-18)
[2024-12-10 18:21] LABS: CREATINE KINASE, TOTAL 59.0 U/L (21-232)
[2024-12-10 18:23] LABS: COVID19 (SARS ANTIGEN RAPID) PRESUMPTIVE NEGATIVE (NEGATIVE); INFLUENZA TYPE A Negative For Type A (NEGATIVE); INFLUENZA TYPE B Negative For Type B (NEGATIVE)
--- NOTE | 2024-12-10 19:53 | HMCIMG ---
EXAM: CR Chest, 1 View. CLINICAL HISTORY: sob COMPARISON: None provided. FINDINGS: LUNGS: There is no mass, infiltrate, or acute pulmonary abnormality. PLEURAL SPACES: No pleural effusion or pneumothorax. MEDIASTINUM: The cardiomediastinal silhouette is within normal limits. There is a pacemaker in place. BONES: No aggressive appearing osseous lesion seen. IMPRESSION: No acute cardiopulmonary pathology is evident. /[place]
[2024-12-10 20:32] VITALS: BP 107/62; PULSE 60; RESP 18; TEMP 98.2; O2SAT 99
== END 2024-12-10 20:41 | disposition home or self-care (01) ==
LOC: EDH 17:18
DX: M54.6 Pain in thoracic spine (principal); R06.02 Shortness of breath; I11.0 Hypertensive heart disease with heart failure; I50.9 Heart failure, unspecified; E78.00 Pure hypercholesterolemia, unspecified; I25.2 Old myocardial infarction; I25.10 Atherosclerotic heart disease of native coronary artery without angina pectoris; Z79.1 Long term (current) use of non-steroidal anti-inflammatories (NSAID); Z79.82 Long term (current) use of aspirin; Z79.899 Other long term (current) drug therapy; Z95.0 Presence of cardiac pacemaker; Z20.822 Contact with and (suspected) exposure to COVID-19
CPT/HCPCS: 36415; 71045; 80048; 82550; 83735; 83880; 84484; 85025; 87426; 87804; 93005; 99285